=== PATIENT | male | born 1930 | race Caucasian/White ===

== ENCOUNTER 2018-07-09 20:04 | Emergency (ER) | payer OTHER, BC ==
[~2018-07-09] VITALS: Ht 182.9 cm; Wt 70.3 kg
[2018-07-09 20:14] VITALS: BP 152/115
[2018-07-09] MEDS ORDERED: ONDANSETRON 4 MG ODT PO ONE (20:35)
[2018-07-09 21:05] LABS: HEMATOCRIT 38.6 % (36-52); HEMOGLOBIN 12.2 g/dL (12.0-18.0); MEAN CORPUSCULAR HEMOGLOBIN 29 pg (27-31); MEAN CORPUSCULAR HGB CONC 32 g/dL (33-37); MEAN CORPUSCULAR VOLUME 92.5 fL (80-94); PLATELET COUNT (AUTO) 365 K/uL (140-450); RED BLOOD CELL COUNT(AUTO) 4.17 MIL/uL (4.20-6.10); RED CELL DISTRIBUTION WIDTH 16.7 % (11.6-13.7); WHITE BLOOD COUNT (AUTO) 16.3 K/uL (4.8-10.8)
[2018-07-09 21:21] LABS: ALBUMIN 2.9 g/dL (3.4-5.0); ANION GAP 12.4 (8-16); ASPARTATE AMINOTRANSFERASE 17 U/L (15-37); CARBON DIOXIDE 27.6 mmol/L (21-32); CHLORIDE 104 mmol/L (98-107); CREATININE 1.3 mg/dL (0.7-1.3); GLUCOSE 123 mg/dL (74-106); SODIUM SERUM 139 mmol/L (136-145); TOTAL BILIRUBIN 0.3 mg/dL (0.0-1.0); UREA NITROGEN, BLOOD 41 mg/dL (7-18)
[2018-07-09 21:22] LABS: LYMPHOCYTES % (MANUAL) 2 % (20-46); MONOCYTES % (MANUAL) 2 % (5-12)
[2018-07-10 00:58] VITALS: BP 118/49
== END 2018-07-10 00:58 | disposition home or self-care (01) ==
LOC: MED 20:04
DX: J18.9 Pneumonia, unspecified organism (principal); R11.10 Vomiting, unspecified; I10 Essential (primary) hypertension
CPT/HCPCS: 36415; 80053; 85025; 99283; Q0162

== ENCOUNTER 2018-12-31 22:44 | Emergency (ER) | payer OTHER, BC ==
[~2018-12-31] VITALS: Ht 177.8 cm; Wt 72.6 kg
[2018-12-31 22:45] VITALS: BP 147/69
--- NOTE | 2018-12-31 22:45 | NUR ---
88/M BIB [facility] FROM HOME. PER EMS, CAREGIVER CALLED 911, PT C/O BLE PAIN WHILE TRANSFERRING FROM CHAIR, X1.5 HR AGO. PT DENIES ANY PAIN, CP, SOB, N/V. PT ARRIVES TO ED, AOX3 (NAME, TIME, PLACE) AT BASELINE, GCS 14 ([id number]), PERRLA, SKIN NORMAL WARM AND DRY, SPO2 98% ON RA, RR 22 EVEN AND MILDLY LABORED, BP 147/69, HR 90 EVEN AND REGULAR, LUNG SOUNDS CLEAR BL. BS ACTIVE X4, ABD SOFT ROUND NONTENDER. HX ALZHEIMER'S, HTN, BIPOLAR
[2018-12-31] MEDS ORDERED: ATOR20TA PO (23:01)
[2018-12-31] MEDS ORDERED: DIVA-56 PO (23:01)
[2018-12-31] MEDS ORDERED: LORA10TA19 PO (23:01)
[2018-12-31] MEDS ORDERED: OMEP20CA PO (23:01)
[2018-12-31] MEDS ORDERED: DONE10TA10 PO (23:01)
[2018-12-31] MEDS ORDERED: LOSA25TA43 PO (23:01)
[2018-12-31] MEDS ORDERED: LOPE-143 PO (23:01)
[2018-12-31] MEDS ORDERED: FERR-252 PO (23:01)
[2018-12-31] MEDS ORDERED: L. R1CAP PO (23:01)
[2018-12-31] MEDS ORDERED: ASPI-1173 PO (23:01)
[2018-12-31] MEDS ORDERED: SERT25TA PO (23:01)
[2018-12-31] MEDS ORDERED: MEMA10TA20 PO (23:01)
[2018-12-31] MEDS ORDERED: TRAZ-343 PO (23:01)
[2018-12-31] MEDS ORDERED: TAMS0.4C96 PO (23:01)
--- NOTE | 2018-12-31 23:10 | NUR ---
LAB AT BEDSIDE.
--- NOTE | 2018-12-31 23:30 | NUR ---
US AT BEDSIDE.
[2018-12-31 23:35] LABS: BASOPHILS # (AUTO) 0.1 K/uL (0.00-0.22); BASOPHILS % (AUTO) 0.5 % (0.0-2.0); EOSINOPHILS % (AUTO) 0.2 % (0.0-4.0); HEMATOCRIT 37.5 % (36-52); HEMOGLOBIN 11.8 g/dL (12.0-18.0); LYMPHOCYTES # (AUTO) 0.2 K/uL (2.0-11.5); LYMPHOCYTES % (AUTO) 1.7 % (20.5-51.1); MEAN CORPUSCULAR HEMOGLOBIN 25 pg (27-31); MEAN CORPUSCULAR HGB CONC 31 g/dL (33-37); MEAN CORPUSCULAR VOLUME 80.1 fL (80-94); MONOCYTES # (AUTO) 0.5 K/uL (0.8-1.0); MONOCYTES % (AUTO) 3.5 % (1.7-9.3); NEUTROPHILS # (AUTO) 12.8 K/uL (1.8-7.7); PLATELET COUNT (AUTO) 384 K/uL (140-450); RED BLOOD CELL COUNT(AUTO) 4.69 MIL/uL (4.20-6.10); WHITE BLOOD COUNT (AUTO) 13.6 K/uL (4.8-10.8)
[2018-12-31 23:50] LABS: ALBUMIN 2.4 g/dL (3.4-5.0); ANION GAP 12.9 (8-16); ASPARTATE AMINOTRANSFERASE 17 U/L (15-37); CARBON DIOXIDE 27.5 mmol/L (21-32); CHLORIDE 102 mmol/L (98-107); CREATININE 1.2 mg/dL (0.7-1.3); GLUCOSE 105 mg/dL (74-106); POTASSIUM 4.4 mmol/L (3.5-5.1); SODIUM SERUM 138 mmol/L (136-145); TOTAL BILIRUBIN 0.4 mg/dL (0.0-1.0); UREA NITROGEN, BLOOD 30 mg/dL (7-18)
[2018-12-31 23:51] LABS: NEUTROPHILS % (AUTO) 94.1 % (42.2-75.2)
--- NOTE | 2019-01-01 00:25 | NUR ---
PT IS ALOC WITH DEMENTIA AT BASELINE. PT'S CAREGIVER CALLED PT'S DAUGHTER LUCIANA HULL. TELEPHONE CONSENT RECEIVED FROM PT'S DAUGHTER LUCIANA FOR CT CHEST ANGIO WITH IV CONTRAST, SIGNED WITH 2 RN VERIFICATION BY DEWAYNE YO AND NANCIE YO. PT'S DAUGHTER VERBALIZED UNDERSTANDING.
--- NOTE | 2019-01-01 00:33 | NUR ---
Note cassy in ED - 01/01/19 at 0111 by LIVIA CALLED COUNTER CHECKER FOR CT CHEST ANGIO WITH CONTRAST. PER COUNTER CHECKER, PT'S GFR WAS CALCULATED TOO LOW. PER DR RAMEY, IT IS OK TO DO PROCEDURE. COUNTER CHECKER TO CALL RADIOLOGIST, WILL FOLLOW UP.
--- NOTE | 2019-01-01 00:33 | NUR ---
CALLED ROAD MARKER FOR CT CHEST ANGIO WITH CONTRAST. PER ROAD MARKER, PT'S GFR WAS CALCULATED TOO LOW. PER DR RAMEY, IT IS OK TO DO PROCEDURE. ROAD MARKER TO CALL RADIOLOGIST, WILL FOLLOW UP.
[2019-01-01 00:36] LABS: APPEARANCE,URINE CLEAR (CLEAR); BILIRUBIN,URINE NEGATIVE (NEGATIVE); BLOOD, URINE 1+ (NEGATIVE); COLOR,URINE YELLOW (YELLOW); LEUKOCYTE ESTERASE ,URINE NEGATIVE (NEGATIVE); NITRITE, URINE NEGATIVE (NEGATIVE); PH,URINE 5.5 (5.0-9.0); UGLUCOSE NEGATIVE (NEGATIVE)
[2019-01-01 00:48] LABS: RBC,URINE 11-20 (MOD) /HPF (0-5); WBC,URINE 0-5 /HPF (0-5)
--- NOTE | 2019-01-01 01:10 | NUR ---
PT TAKEN TO CT AT THIS TIME
--- NOTE | 2019-01-01 01:35 | NUR ---
PT BACK FROM CT
--- NOTE | 2019-01-01 01:55 | NUR ---
PT LAYING IN BED SEMIFOWLER, CAREGIVER AT BEDSIDE. PT WITH INTERMITTENT COUGHING SPELLS, WHITE CREAMY PHLEGM NOTED. PT'S CAREGIVER STATED THAT HAS HAD A COUGH FOR YEARS AND WOULD HAVE BOUTS OF TACHYPNEA. VS NOTED. SPO2 94% ON RA, RR 27 EVEN AND MILDLY LABORED. DENIES CP OR SOB. ALL NEEDS MET AT THIS TIME.
--- NOTE | 2019-01-01 03:24 | NUR ---
PT LAYING IN BED SEMIFOWLER, CAREGIVER AT BEDSIDE. PT SLEEPING, AROUSABLE TO TOUCH, VS NOTED. SPO2 94% ON RA, RR 21 EVEN AND UNLABORED. DENIES ANY CP OR SOB. ALL NEEDS MET AT THIS TIME.
--- NOTE | 2019-01-01 03:25 | NUR ---
SPOKE WITH DR RAMEY REGARDING PT CONDITION. ER MD NOT CONCERNED FOR PNA AT THIS TIME, PT WITH CHRONIC COUGH. CT CHEST ANGIO NEGATIVE FOR PE. US NEGATIVE FOR DVT. VSS, NO S/S OF DISTRESS. PT OK FOR DISCHARGE.
[2019-01-01 04:10] VITALS: BP 112/41
--- NOTE | 2019-01-01 04:10 | NUR ---
Patient discharged with v/s stable. Written and verbal after care instructions given and explained to patient and patient's caregiver. Patient alert, oriented at baseline and verbalized understanding of instructions. Wheel Chair Assisted by EMT with pt's caregiver to home. All questions addressed prior to discharge. ID band removed. Patient and patient's caregiver advised to follow up with PMD. Rx of KEFLEX given. Patient and patient's caregiver educated on indication of medication including possible reaction and side effects. No further questions asked.
== END 2019-01-01 04:10 | disposition home or self-care (01) ==
LOC: MED 22:44
DX: M79.604 Pain in right leg (principal); M79.605 Pain in left leg; N39.0 Urinary tract infection, site not specified; I10 Essential (primary) hypertension; F03.90 Unspecified dementia, unspecified severity, without behavioral disturbance, psychotic disturbance, mood disturbance, and anxiety; Z79.82 Long term (current) use of aspirin; Z79.899 Other long term (current) drug therapy
CPT/HCPCS: 36415; 70450; 71045; 71275; 80053; 81001; 82550; 83880; 84484; 85025; 85379; 87086; 93005; 93970; 99284; Q0092; Q9967; 81002